=== PATIENT | female | born 1960 ===

== ENCOUNTER 2024-10-24 07:00 | Inpatient (IN) | payer OTHER ==
[~2024-10-24] VITALS: Ht 154.9 cm; Wt 68.0 kg
[2024-10-24] MEDS ORDERED: SELENIUM200 MC2 PO (08:05)
[2024-10-24] MEDS ORDERED: VITAMIN C100 MG (08:05)
[2024-10-24] MEDS ORDERED: VITAMIN E400 UNI7 (08:05)
[2024-10-24] MEDS ORDERED: CALTRATE 600+D1 EAC1 PO (08:05)
[2024-10-24] MEDS ORDERED: TURMERIC 500 M1 EACH PO (08:06)
[2024-10-24] MEDS ORDERED: GLUCOSAMINE1000 MG PO (08:06)
[2024-10-24 08:09] VITALS: BP 99/64
[2024-10-24 08:21] LABS: URINE APPEARANCE Clear; URINE BILIRRUBIN Negative (NEGATIVE); URINE BLOOD Negative; URINE COLOR Yellow; URINE GLUCOSE Negative (NEGATIVE); URINE KETONE Negative (NEGATIVE); URINE LEUKOCYTE Negative; URINE NITRATE Negative; URINE PROTEIN Negative (NEGATIVE); URINE UROBILINOGEN 0.2 E.U./dl
[2024-10-24 08:22] LABS: URINE EPITHELIAL CELLS 3.3 uL (0.0-38.8); URINE RBC 5.4 uL (0.0-20.8); URINE WBC 6.1 uL (0.0-23.2)
[2024-10-24 08:29] LABS: HEMATOCRIT 41.6 % (36.0-45.00); HEMOGLOBIN 14.1 g/dL (12.0-15.00); MEAN CORPUSCULAR HEMOGLOBIN 31.1 pg (27.00-32.0); MEAN CORPUSCULAR HGB CONC 33.8 g/dl (32.0-36.0); PLATELET COUNT 197 K/uL (150-450); RED BLOOD COUNT 4.53 M/uL (4.00-6.00); RED CELL DISTRIBUTION WIDTH 13.3 % (11.5-14.5)
[2024-10-24 08:47] LABS: COVID-19 AG NEGATIVE (NEGATIVE); URINE CAST 1.03 uL (0.0-1.40)
[2024-10-24 08:59] LABS: ALBUMIN 4.1 gm/dL (3.4-5.0); BILIRUBIN TOTAL 0.93 mg/dL (0.3-1.2); CALCIUM 9.7 mg/dL (8.5-10.1); CHOL HDL RATIO 2.7 (0-5.0); CREATININE SERUM 0.44 mg/dL (0.55-1.02); GFR 143.51; GLOBULINA 2.8 G/DL (2.4-3.5); POTASSIUM 4.38 mEq/L (3.5-5.1); TOTAL PROTEIN 6.9 gm/dL (6.4-8.2)
[2024-10-24 09:04] LABS: INR 0.98; PARTIAL THROMBOPLASTIN TIME 24.8 SECONDS (22.0-34.0); PROTHROMBIN TIME 10.7 SECONDS (9.0-11.5)
[2024-10-24 11:14] LABS: RH POSITIVE
[2024-10-31] MEDS ORDERED: CEFOXITIN SODIUM 2,000 MG VIAL IV ONE (08:49)
[2024-10-31] MEDS ORDERED: ISOPROPYL ALCOHOL 30 ML OUNCE TOP ONE (10:39)
[2024-10-31] MEDS ORDERED: BUPIVACAINE HCL/MPF 0.5% 30ML VIAL ONE (10:39)
[2024-10-31] MEDS ORDERED: LIDOCAINE HCL 1%/EPINEPHRINE 20ML VIAL IJ ONE (10:40)
[2024-10-31] MEDS ORDERED: VANCOMYCIN HCL 1,000 MG VIAL ONE (11:34)
[2024-10-31] MEDS ORDERED: TRANEXAMIC ACID 100MG/1ML (1000MG) AMPUL IV ONE (11:34)
[2024-10-31] MEDS ORDERED: KETOROLAC TROMETHAMINE 60 MG VIAL IM ONE (12:49)
[2024-10-31] MEDS ORDERED: MORPHINE SULFATE 4 MG/ML CARTRIDGE IV PRN (14:15)
[2024-10-31] MEDS ORDERED: SODIUM CHLORIDE 0.45 % 1,000 ML IV SCH (14:15)
[2024-10-31] MEDS ORDERED: OxyCODONE HCL 5 MG TABLET (ROXICODONE) PO PRN (14:15)
[2024-10-31] MEDS ORDERED: ONDANSETRON HCL 2 MG/ML VIAL IV PRN (14:15)
[2024-10-31] MEDS ORDERED: CEFAZOLIN SODIUM 1,000 MG VIAL ONE (16:06)
[2024-10-31] MEDS ORDERED: CEFAZOLIN SODIUM 1,000 MG VIAL IV SCH (17:00)
[2024-10-31] MEDS ORDERED: GABAPENTIN 300 MG CAPSULE PO SCH (17:00)
[2024-10-31 17:58] VITALS: BP 119/77; O2SAT 99
[2024-10-31] MEDS ORDERED: ACETAMINOPHEN 500 MG GEL..CAP PO SCH (18:00)
[2024-11-01 00:26] VITALS: BP 111/78; O2SAT 100
[2024-11-01 06:23] LABS: HEMATOCRIT 34.9 % (36.0-45.00); HEMOGLOBIN 12.2 g/dL (12.0-15.00); MEAN CELL VOLUME 89.8 fL (80.00-100.00); MEAN CORPUSCULAR HEMOGLOBIN 31.4 pg (27.00-32.0); PLATELET COUNT 155 K/uL (150-450); RED BLOOD COUNT 3.89 M/uL (4.00-6.00); RED CELL DISTRIBUTION WIDTH 13.3 % (11.5-14.5)
[2024-11-01] MEDS ORDERED: ELIQUIS2.5 MG PO (08:19)
[2024-11-01] MEDS ORDERED: PERCOCET 5-3251 EACH PO (08:19)
[2024-11-01] MEDS ORDERED: DUI500 PO (08:19)
[2024-11-01 08:52] VITALS: BP 112/70; O2SAT 99
[2024-11-01] MEDS ORDERED: APIXABAN 2.5 MG TABLET PO SCH (09:00)
[2024-11-01] MEDS ORDERED: SENNOSIDES 1 TAB TABLET PO SCH (09:00)
[2024-11-01 12:24] LABS: COVID-19 AG NEGATIVE (NEGATIVE)
[2024-11-01 18:12] VITALS: BP 111/65; O2SAT 95
[2024-11-02 01:29] VITALS: BP 120/71; O2SAT 94
[2024-11-02 07:01] LABS: HEMATOCRIT 31.5 % (36.0-45.00); HEMOGLOBIN 10.9 g/dL (12.0-15.00); MEAN CELL VOLUME 90.3 fL (80.00-100.00); MEAN CORPUSCULAR HEMOGLOBIN 31.3 pg (27.00-32.0); MEAN CORPUSCULAR HGB CONC 34.6 g/dl (32.0-36.0); RED BLOOD COUNT 3.49 M/uL (4.00-6.00); RED CELL DISTRIBUTION WIDTH 13.8 % (11.5-14.5)
[2024-11-02 07:06] LABS: PLATELET COUNT 127 K/uL (150-450)
[2024-11-02 08:43] VITALS: BP 119/59; O2SAT 100
[2024-11-02] MEDS ORDERED: IRON FUM,PS/FOLIC ACID/VITC/B3 1 CAP CAPSULE PO SCH (09:00)
== END 2024-11-02 16:30 | disposition designated cancer center or children's hospital (05) | DRG 470 ==
LOC: SURG 10-31 06:37 → O/R 10-31 06:37 → SURH 10-31 07:00 → SURG 10-31 16:10 → SURH 10-31 20:15 → SURG 11-02 16:30
PROVIDERS: ADMIT Orthopaedic Surgery; ATTEND Orthopaedic Surgery
PROC: 0MNN0ZZ Release Right Knee Bursa and Ligament, Open Approach (ICD-10-PCS; 2024-10-31)
PROC: 0SRC0J9 Replacement of Right Knee Joint with Synthetic Substitute, Cemented, Open Approach (ICD-10-PCS; principal; 2024-10-31 20:15)
DX: M17.11 Unilateral primary osteoarthritis, right knee (principal); M22.11 Recurrent subluxation of patella, right knee